=== PATIENT | female | born 1960 | race Caucasian/White ===

== ENCOUNTER 2016-04-21 09:45 | Emergency (ER) | payer OTHER ==
[2016-04-21 10:16] VITALS: BP 119/62; PULSE 74; RESP 16; TEMP 98.1; O2SAT 97
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
== END 2016-04-21 11:15 | disposition home or self-care (01) ==
LOC: CED 09:45
DX: S61.412A Laceration without foreign body of left hand, initial encounter (principal); W23.0XXA Caught, crushed, jammed, or pinched between moving objects, initial encounter; Y92.89 Other specified places as the place of occurrence of the external cause
CPT/HCPCS: G0463-PO